=== PATIENT | male | born 1950 | race Two or more races ===

== ENCOUNTER 2024-11-01 07:19 | Day surgery (SDC) | payer OTHER ==
[2024-10-25 09:38] LABS: URINE APPEARANCE Clear; URINE BACTERIA 4.8 uL (0.0-1933); URINE BILIRRUBIN Negative (NEGATIVE); URINE BLOOD Negative; URINE COLOR Yellow; URINE EPITHELIAL CELLS 2.2 uL (0.0-38.8); URINE GLUCOSE Negative (NEGATIVE); URINE KETONE Negative (NEGATIVE); URINE LEUKOCYTE Negative; URINE NITRATE Negative; URINE PROTEIN Trace (NEGATIVE); URINE RBC 3.2 uL (0.0-20.8); URINE UROBILINOGEN 0.2 E.U./dl
[2024-10-25 09:43] LABS: URINE WBC 0.9 uL (0.0-23.2)
[2024-10-25 09:48] LABS: HEMATOCRIT 42.7 % (39.0-48.0); HEMOGLOBIN 14.2 g/dL (13-16.00); MEAN CELL VOLUME 91.2 fL (80.0-100.00); MEAN CORPUSCULAR HEMOGLOBIN 30.3 pg (27.00-32.0); MEAN CORPUSCULAR HGB CONC 33.2 g/dl (32.0-36.0); PLATELET COUNT 224 K/uL (150-450); RED BLOOD COUNT 4.68 M/uL (4.00-6.00); RED CELL DISTRIBUTION WIDTH 13.7 % (11.5-14.5)
[2024-10-25 09:52] LABS: PROTHROMBIN TIME 10.9 SECONDS (9.0-11.5)
[2024-10-25 10:18] LABS: ALBUMIN 3.9 gm/dL (3.4-5.0); BILIRUBIN TOTAL 0.81 mg/dL (0.3-1.2); CREATININE SERUM 1.25 mg/dL (0.70-1.30); GFR 56.62; GLOBULINA 3.3 G/DL (2.4-3.5); POTASSIUM 5.04 mEq/L (3.5-5.1); TOTAL PROTEIN 7.2 gm/dL (6.4-8.2)
[2024-11-01] MEDS ORDERED: MIRALAX17 GM PO (08:13)
[2024-11-01] MEDS ORDERED: TYLENOL ARTHRI650 MG PO (08:13)
[2024-11-01] MEDS ORDERED: TRAMADOL HCL50 MG PO (08:13)
[2024-11-01] MEDS ORDERED: CEFAZOLIN SODIUM 1,000 MG VIAL ONE (09:55)
[2024-11-01] MEDS ORDERED: BUPIVACAINE HCL 0.5% 50ML VIAL ONE (10:45)
== END 2024-11-01 13:50 | disposition home or self-care (01) ==
LOC: CIR.AMB 07:19
PROVIDERS: ATTEND Surgery
DX: K40.90 Unilateral inguinal hernia, without obstruction or gangrene, not specified as recurrent (principal); K42.0 Umbilical hernia with obstruction, without gangrene; Z88.6 Allergy status to analgesic agent; Z91.013 Allergy to seafood; J32.9 Chronic sinusitis, unspecified; M19.90 Unspecified osteoarthritis, unspecified site
CPT/HCPCS: 49650; 49592; C1781